=== PATIENT | female | born 2005 | race Hispanic/Latino ===

== ENCOUNTER → 2025-04-22 | Emergency (ER) | payer BC, MEDICAID ==
[~2025-04-22] VITALS: Ht 157.5 cm; Wt 59.0 kg
--- NOTE | 2025-04-22 01:51 | NUR ---
COVID, FLU AND STREPSWABS COLLECTED AND SENT
--- NOTE | 2025-04-22 01:51 | NUR ---
UA CUP PROVIDED
[2025-04-22 02:08] LABS: RAPID GROUP A STREP negative (NEGATIVE)
[2025-04-22 02:14] LABS: SARS-CoV-2, RNA, NAAT NEGATIVE SARS CoV-2 (NEGATIVE)
[2025-04-22 02:18] LABS: INFLUENZA TYPE A Negative For Type A (NEGATIVE); INFLUENZA TYPE B Negative For Type B (NEGATIVE)
--- NOTE | 2025-04-22 02:24 | NUR ---
PT IN LOBBY, WENT TO COLLECT URINE SAMPLE, PT STATES SHE HAS NOT BEEN ABLE TO COLLECT
--- NOTE | 2025-04-22 02:58 | ERN ---
ED Note History of Present Illness Stated Complaint: ABD PAIN, FEVER, DIARRHEA Chief Complaint: Multiple Complaints Time Seen by MD: 02:02 Dictation: This is a 19-year-old female who presented to the emergency room with complaints of nausea vomitings diarrhea and diffuse abdominal pain. This has been going on for the past 24 hours. Apparently patient ate some food from a food truck right across the hospital at her work and she did fine until she went home as she woke up she started having abdominal discomfort and had diarrhea throughout the day and she went to work there was a [employer] constitution party and she ate small amount of food. She got home she developed a fever and continued to have diarrhea with generalized body weakness. Patient's mother was concerned about a bowel obstruction and instructed her to come to the ER so she was here. She does report nausea but no vomitings. She feels somewhat lightheaded she took Tylenol around 9:00 p.m. and the fever defervesced. No other coworkers have been sick Temperature 97.1 pulse 109 respirations 18 blood pressure 118/66 with a pulse oximetry of 98% on room air Allergies: Coded Allergies: acetaminophen (Unverified Allergy, Unknown, 04/22/25) codeine (Unverified Allergy, Unknown, 04/22/25) Home Meds Active Scripts Ondansetron (Ondansetron Odt) 4 Mg Tab.rapdis, 4 MG PO Q6HPRN PRN for nausea, #16 TAB 0 Refills Prov:KIM SALINAS MD 04/22/25 Past Medical History Past Medical History: No Pertinent History Surgical History: Other Surgical History Other: RT KNEE Family History: Negative Social History: Negative LMP: Apr 06, 2025 RN Note Reviewed/Agreed w/PFSH: Yes Review of System Dictation Constitutional: Negative for fever,chills, and weight loss Eyes: Negative for injury, pain,redness, and discharge ENT: Negative for injury,pain or swelling Cardiovascular: Negative for chest pain, palpitations, and edema Respiratory: Negative for shortness of breath, cough, and wheezing, Abdomen/GI: Positive for abdominal pain, nausea, diarrhea Back: Negative for injury and pain : Negative for injury, bleeding and discharge MS/Extremity: Negative for injury and deformity Skin: Negative for rash, and discoloration Neuro: Negative for headache, weakness, numbness, tingling, and seizure Psych: Negative for suicide ideation, homicidal ideation, and hallucinations Initial Vital Sign VS Vital Signs Date Time Temp Pulse Resp B/P (MAP) Pulse Ox O2 Delivery O2 Flow Rate FiO2 04/22/25 01:49 97.2 109 18 118/66 98 Nasal Cannula Physical Exam Dictation General: awake, alert, NAD Head/Face: Normocephalic, atraumatic Eyes: PERRL, EOMI, vision at baseline ENT: oral cavity clear, TMs clear, no signs of infection Neck: Trachea midline, supple, no nuchal rigidity Cardiovascular: RRR, normal S1/S2, No MRGs, no JVD Respiratory: CTAB, no respiratory distress, No rales or wheezes Abdomen: Soft, non-tender, non-distended, normal bowel sounds, no guarding or rebound. Skin: Warm, dry, normal turgor, no rash MS/Extremity: Pulses equal, no cyanosis, neurovascular intact, FROM Neuro: COAx4, GCS 15, strength 5/5, CN 2-12 intact, normal cerebellar exam, normal gait, Psych: Normal behavior, mood, and affect normal Extremities-trace edema without any palpable cords, Homans sign is negative Results (Laboratory/Radiology) Laboratory/Radiology Laboratory Tests Test 04/22/25 01:51 04/22/25 03:59 Influenza Type A Antigen Negative For Type A Influenza Type B Antigen Negative For Type B SARS-CoV-2, RNA, NAAT NEGATIVE SARS CoV-2 Group A Streptococcus Rapid negative (NEGATIVE) Urine Color LIGHT-YELLOW (YELLOW) Urine Appearance CLEAR (CLEAR) Urine pH 6.0 (5.0-8.0) Urine Specific [place] 1.021 (1.001-1.031) Urine Protein NEGATIVE mg/dL (NEGATIVE) Urine Glucose (UA) NEGATIVE mg/dL (NEGATIVE) Urine Ketones NEGATIVE mg/dL (NEGATIVE) Urine Occult Blood NEGATIVE (NEGATIVE) Urine Nitrate NEGATIVE (NEGATIVE) Urine Bilirubin NEGATIVE mg/dL (NEGATIVE) Urine Urobilinogen 0.2 mg/dL (0.2-1.0) Urine Leukocyte Esterase NEGATIVE [place]/uL Urine HCG, Qualitative NEGATIVE (NEGATIVE) Labs Reviewed?: Yes ED Course ED Course Orders Procedure Category Date Status Time Influenza Type A & B, LAB 04/22/25 Complete Rapid 01:51 Covid Rna Naat LAB 12/13/25 Complete 01:51 Rapid (Group A Strep) LAB 04/22/25 Complete 01:51 Urinalysis Profile LAB 04/22/25 Complete 01:51 ,Urine Test LAB 04/22/25 Complete 01:51 0.9%Nacl 1000ml (Ns PHA 04/22/25 Complete 1000ml) 03:00 Ondansetron 4mg Inj PHA 04/22/25 Complete (Zofran 4mg Inj) 03:00 Ketorolac PHA 04/22/25 Complete Tromethamine 15mg/Ml 03:00 Current Medications Medications (Trade) Dose Ordered Sig/Jaja Route PRN Reason Start Time Stop Time Status Last Admin Dose Admin Ketorolac Tromethamine (toRADol) 15 mg ONCE ONCE IV 04/22/25 03:00 04/22/25 03:01 DC 04/22/25 03:13 Ondansetron HCl (zoFRAN 4MG INJ) 4 mg ONCE ONCE IVP 04/22/25 03:00 04/22/25 03:01 DC 04/22/25 03:12 Sodium Chloride 1,000 ml @ 0 mls/hr ONCE ONCE IV 04/22/25 03:00 04/22/25 03:01 DC 04/22/25 03:13 Vital Signs Date Time Temp Pulse Resp B/P (MAP) Pulse Ox O2 Delivery O2 Flow Rate FiO2 04/22/25 01:49 97.2 109 18 118/66 98 Nasal Cannula Medical Decision Making MDM Differential diagnosis: Influenza, COVID, RSV, streptococcal pharyngitis, otitis media, acute viral syndrome, Gastritis, esophagitis, gastroesophageal reflux disease, acute cholecystitis, peptic ulcer disease, gastroenteritis, colitis, constipation, pancreatitis This is a 19-year-old female who presented to the emergency room with complaints of nausea vomitings diarrhea and diffuse abdominal pain. This has been going on for the past 24 hours. Apparently patient ate some food from a food truck right across the hospital at her work and she did fine until she went home as she woke up she started having abdominal discomfort and had diarrhea throughout the day and she went to work there was a [place] constitution party and she ate small amount of food. She got home she developed a fever and continued to have diarrhea with generalized body weakness. Patient's mother was concerned about a bowel obstruction and instructed her to come to the ER so she was here. She does report nausea but no vomitings. She feels somewhat lightheaded she took Tylenol around 9:00 p.m. and the fever defervesced. No other coworkers have been sick Temperature 97.1 pulse 109 respirations 18 blood pressure 118/66 with a pulse oximetry of 98% on room air Nasopharyngeal swabs for influenza COVID as her daughter are all negative. I updated the patient and explained to her that likely she has gastroenteritis in the abdominal exam is very benign with no point tenderness. Plan to give her gentle hydration and symptomatic treatment and reassess. Rationale: Tests considered and ordered secondary to shared decision making include: Viral swabs Previous outside records reviewed: Old ER visits. Risk of complication and/or morbidity or mortality of patient management: None Medications-Per medication reconciliation Need for hospitalization: Patient does not meet criteria for hospitalization. Need for emergency major/minor surgery: No There are no social concerns with this patient. Prescription drug management Prescriptions will include symptomatic care Patient's prior external medical records from other ER visits were reviewed by me as indicated. Prior testing and results from previous visits were reviewed. Prior tests were taken into account with medical decision making and resource utilization, independent historian/historians were used to obtain complete medical history. I independently interpreted the test that were performed, results were reviewed by me and considered findings on radiology if ordered. Medical management and examination interpretation discussions were had by me with other qualified healthcare professionals as indicated for the patient's care. Problem List Problem List: (1) Gastroenteritis (2) Dehydration DX & DISP Disposition: Discharge Departure Impression: Primary Impression: Gastroenteritis Additional Impression: Dehydration Condition: Stable Scripts Ondansetron (Ondansetron Odt) 4 Mg Tab.rapdis 4 MG PO Q6HPRN PRN for nausea, #16 TAB 0 Refills Prov: KIM SALINAS MD 04/22/25 Additional Instructions: Patient and the caregiver have been informed of all the diagnostic tests and the imaging conducted during the today's visit to the emergency room and has verba lized understanding of the results I have personally reviewed and interpreted all diagnostic exams performed here in the ER today as well as the vital signs documented by the nursing staff. The patient is now being discharged to home and should follow up with the primary care physician or the specialist as directed by the ER staff. Referrals: NARCISO SINGH (PCP) KIM SALINAS MD Apr 22, 2025 02:58
[2025-04-22] MEDS: 0.9%NACL 1000ML 1,000 ML IV ONE (03:13)
[2025-04-22 04:11] LABS: APPEARANCE,URINE CLEAR (CLEAR); GLUCOSE, URINE (UA) NEGATIVE (NEGATIVE); LEUKOCYTE ESTERASE ,URINE NEGATIVE Leu/uL (NEGATIVE); NITRATE,URINE NEGATIVE (NEGATIVE); OCCULT BLOOD,URINE NEGATIVE (NEGATIVE)
[2025-04-22 04:14] LABS: ADD UA MICROSCOPIC NO
[2025-04-22 04:15] LABS: HCG,QUALITATIVE URINE NEGATIVE (NEGATIVE)
[2025-04-22 04:26] VITALS: BP 110/65; PULSE 67; RESP 16; TEMP 97; O2SAT 100
== END ==
LOC: EDH 01:48
DX: K52.9 Noninfective gastroenteritis and colitis, unspecified (principal); E86.0 Dehydration; Z20.822 Contact with and (suspected) exposure to COVID-19; Z88.5 Allergy status to narcotic agent
CPT/HCPCS: 99284; 96374; 87635; 96375; 87880; 87804 ×2; 81003; 81025; J1885; J7030; J2405